=== PATIENT | female | born 1995 | race Caucasian/White ===

== ENCOUNTER 2020-06-03 14:06 | Emergency (ER) | payer MEDICAID ==
[~2020-06-03] VITALS: Ht 152.4 cm; Wt 72.1 kg
[2020-06-03 14:13] VITALS: BP 150/90
--- NOTE | 2020-06-03 14:30 | NUR ---
requesting a return to work notice. Pt states she was tested for COVID one week ago and she tested negative but her job will not allow her to return until she is cleared by a doctor. Pt denies any symptoms at this time. Pt only requesting a return to work notice. VSS.
[2020-06-03 14:49] VITALS: BP 150/90
--- NOTE | 2020-06-03 14:49 | NUR ---
Patient discharged with v/s stable. Written and verbal after care instructions given and explained. Patient verbalized understanding. Work excuse provided to return to work. Ambulatory with steady gait. All questions addressed prior to discharge. Advised to follow up with PMD.
== END 2020-06-03 14:49 | disposition home or self-care (01) ==
LOC: MED 14:06
DX: J45.909 Unspecified asthma, uncomplicated (principal); Z02.89 Encounter for other administrative examinations
CPT/HCPCS: 99281; 99283

== ENCOUNTER 2022-01-10 18:38 | Emergency (ER) | payer MEDICAID, OTHER ==
[~2022-01-10] VITALS: Ht 154.9 cm; Wt 72.6 kg
[2022-01-10 18:43] VITALS: BP 157/69
--- NOTE | 2022-01-10 18:58 | NUR ---
Patient ambulated from [facility] to bed 04.
--- NOTE | 2022-01-10 19:03 | NUR ---
Dr. Barrera is evaluating pt at bedside
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
[2022-01-10] MEDS ORDERED: LORazepam 0.5 MG TAB PO ONE (19:05)
--- NOTE | 2022-01-10 19:14 | NUR ---
RAD at bedside
--- NOTE | 2022-01-10 19:21 | NUR ---
Report and transfer of care endorsed to KYMBERLY Conde
[2022-01-10 20:42] VITALS: BP 143/65
--- NOTE | 2022-01-10 20:42 | NUR ---
Patient discharged with v/s stable. Written and verbal after care instructions given and explained. Patient verbalized understanding. Ambulatory with steady gait. All questions addressed prior to discharge. Advised to follow up with PMD. VSS, A/OX4, AMBULATORY, UNLABORED BREATHING, AND CALM DEMEANOR.
== END 2022-01-10 20:42 | disposition home or self-care (01) ==
LOC: MED 18:38
DX: F41.9 Anxiety disorder, unspecified (principal); J45.909 Unspecified asthma, uncomplicated
CPT/HCPCS: 71045; 93005; 99284; Q0092

== ENCOUNTER 2022-10-07 17:51 | Emergency (ER) | payer OTHER ==
[~2022-10-07] VITALS: Ht 157.5 cm; Wt 68.9 kg
[2022-10-07 18:00] VITALS: BP 130/87
--- NOTE | 2022-10-07 18:35 | NUR ---
PT AMBULATED TO ROOM 11
--- NOTE | 2022-10-07 18:44 | NUR ---
PT /O SUBSTERNAL CHEST PAIN RADIATING TO BACK X2 DAYS. PT STATE HAD A SIMILAR EPISODE AND DX WITH AXIETY ATTACK, PT STATES SIMILAR. NSR ON MONITOR. PENDING ER MD MUKHERJEE
[2022-10-07] MEDS ORDERED: ATA25 PO (19:00)
[2022-10-07] MEDS ORDERED: IBUP-2213 PO (19:00)
[2022-10-07 19:06] VITALS: BP 127/98
--- NOTE | 2022-10-07 19:06 | NUR ---
Patient discharged with v/s stable. Written and verbal after care instructions FOR NO SPECIFIC CHEST PAIN AND GENREALIZED ANXIETY DISORDER given and explained. Patient alert, oriented and verbalized understanding of instructions. Ambulatory with steady gait. All questions addressed prior to discharge. ID band removed. Patient advised to follow up with PMD. Rx of ATARAX HCL AND IBUPROFEN given. Opportunity to ask questions provided and answered.
== END 2022-10-07 19:06 | disposition home or self-care (01) ==
LOC: MED 17:51
DX: R07.9 Chest pain, unspecified (principal); F41.9 Anxiety disorder, unspecified; J45.909 Unspecified asthma, uncomplicated; Z72.89 Other problems related to lifestyle
CPT/HCPCS: 99283

== ENCOUNTER 2022-11-12 11:06 | Emergency (ER) | payer OTHER ==
[~2022-11-12] VITALS: Ht 157.5 cm; Wt 65.8 kg
[~2022-11-12 11:06] MED LIST: ATA25 PO; IBUP-2213 PO
[2022-11-12 11:12] VITALS: BP 121/65
[2022-11-12] MEDS ORDERED: LIDOCAINE 1% 500 MG/ 50 ML VIAL INJ ONE (12:05)
[2022-11-12] MEDS ORDERED: IBUPROFEN 600 MG TAB PO ONE (12:05)
[2022-11-12] MEDS ORDERED: LIDOCAINE MPF 1% 5 ML ONE ×2 (12:21→12:23)
[2022-11-12] MEDS ORDERED: LIDOCAINE MPF 1% 10 MG/ML VIAL INJ ONE (12:25)
[2022-11-12] MEDS ORDERED: HYDROcodone/APAP 5/325 MG 1 TAB TAB PO ONE (13:10)
[2022-11-12] MEDS ORDERED: IBUP-2213 PO (13:12)
[2022-11-12] MEDS ORDERED: SULF-59 PO (13:12)
[2022-11-12] MEDS ORDERED: CEPH-588 PO (13:12)
--- NOTE | 2022-11-12 13:31 | NUR ---
Non adherant dressing and bandage placed over abscess on sacral region. Packing in place, bleeding controlled.
--- NOTE | 2022-11-12 13:37 | NUR ---
Patient discharged with v/s stable. Written and verbal after care instructions given and explained. Patient alert, oriented and verbalized understanding of instructions. Ambulatory with steady gait. All questions addressed prior to discharge. ID band removed. Patient advised to follow up with PMD. Rx of BACTRIM, KEFLEX AND IBUPROFEN given. Patient educated on indication of medication including possible reaction and side effects. Opportunity to ask questions provided and answered.
== END 2022-11-12 13:37 | disposition home or self-care (01) ==
LOC: MED 11:06
DX: L05.01 Pilonidal cyst with abscess (principal); J45.909 Unspecified asthma, uncomplicated
CPT/HCPCS: 10060; 99283; J2001

== ENCOUNTER 2022-11-14 08:40 | Emergency (ER) | payer OTHER ==
[~2022-11-14] VITALS: Ht 154.9 cm; Wt 65.3 kg
[~2022-11-14 08:40] MED LIST changes: +CEPH-588 PO; +SULF-59 PO
[2022-11-14 08:48] VITALS: BP 98/73
== END 2022-11-14 09:40 | disposition home or self-care (01) ==
LOC: MED 08:40
DX: L05.91 Pilonidal cyst without abscess (principal); Z48.00 Encounter for change or removal of nonsurgical wound dressing
CPT/HCPCS: 10080; 99284

== ENCOUNTER 2023-02-26 11:21 | Emergency (ER) | payer OTHER ==
[~2023-02-26] VITALS: Ht 157.5 cm; Wt 71.2 kg
[2023-02-26 11:55] VITALS: BP 137/86
[2023-02-26] MEDS ORDERED: IBUP-2213 PO (12:15)
[2023-02-26] MEDS ORDERED: METH-1681 PO (12:15)
--- NOTE | 2023-02-26 13:38 | NUR ---
Patient discharged with v/s stable. Written and verbal after care instructions given and explained. Patient alert, oriented and verbalized understanding of instructions. Ambulatory with steady gait. All questions addressed prior to discharge. ID band removed. Patient advised to follow up with PMD. Rx of ROBAXIN given. Patient educated on indication of medication including possible reaction and side effects. Opportunity to ask questions provided and answered.
== END 2023-02-26 13:00 | disposition home or self-care (01) ==
LOC: MED 11:21
DX: M79.18 Myalgia, other site (principal); M54.2 Cervicalgia; J45.909 Unspecified asthma, uncomplicated; Z79.899 Other long term (current) drug therapy; Z79.1 Long term (current) use of non-steroidal anti-inflammatories (NSAID); Z79.2 Long term (current) use of antibiotics; V89.2XXA Person injured in unspecified motor-vehicle accident, traffic, initial encounter; Y93.89 Activity, other specified; Y92.410 Unspecified street and highway as the place of occurrence of the external cause; Y99.8 Other external cause status
CPT/HCPCS: 99283

== ENCOUNTER 2023-05-21 11:29 | Emergency (ER) | payer OTHER ==
[~2023-05-21] VITALS: Ht 167.6 cm; Wt 70.3 kg
[~2023-05-21 11:29] MED LIST changes: +METH-1681 PO
[2023-05-21 13:12] VITALS: BP 127/84
--- NOTE | 2023-05-21 13:30 | NUR ---
PATIENT PRESENTS TO ED WITH BREAST PAIN. PT STATES THE PAIN HAS BEEN FOR 24 HOURS . DENIES N/V/D; SKIN IS PINK/WARM/DRY; PT HAS SMALL PIMPLE LOCATED UNDER LEFT ARM. AAOX4 WITH EVEN AND STEADY GAIT; LUNGS CLEAR BL; HR EVEN AND REGULAR; PT DENIES ANY FEVER, CP, SOB, OR COUGH AT THIS TIME; PATIENT STATES PAIN OF 8/10 AT THIS TIME; VSS; PATIENT POSITIONED FOR COMFORT; HOB ELEVATED; BEDRAILS UP X2; BED DOWN. ER MD MADE AWARE OF PT STATUS. PT HAS GIVEN URINE SAMPLE. NEGATIVE. PROVIDER AWARE OF RESULTS.
[2023-05-21] MEDS ORDERED: IBUP-1842 PO (13:49)
[2023-05-21 13:53] LABS: APPEARANCE,URINE CLEAR (CLEAR); BILIRUBIN,URINE NEGATIVE (NEGATIVE); BLOOD, URINE 1+ (NEGATIVE); COLOR,URINE YELLOW (YELLOW); LEUKOCYTE ESTERASE ,URINE TRACE (NEGATIVE); NITRITE, URINE NEGATIVE (NEGATIVE); UGLUCOSE NEGATIVE (NEGATIVE)
--- NOTE | 2023-05-21 13:56 | NUR ---
Patient discharged with v/s stable. Written and verbal after care instructions given and explained. Patient verbalized understanding. Ambulatory with steady gait. All questions addressed prior to discharge. Advised to follow up with PMD.
[2023-05-21 13:59] VITALS: BP 127/84
--- NOTE | 2023-05-21 14:02 | NUR ---
The patient's care was reviewed and supervised by [place] [facility], RN.
== END 2023-05-21 14:02 | disposition home or self-care (01) ==
LOC: MED 11:29
DX: N60.11 Diffuse cystic mastopathy of right breast (principal); N60.12 Diffuse cystic mastopathy of left breast; J45.909 Unspecified asthma, uncomplicated; Z79.899 Other long term (current) drug therapy
CPT/HCPCS: 81001; 81025; 87086; 99283

== ENCOUNTER 2023-10-27 01:12 | Emergency (ER) | payer OTHER ==
[~2023-10-27] VITALS: Ht 154.9 cm; Wt 65.8 kg
[~2023-10-27 01:12] MED LIST changes: +IBUP-1842 PO
[2023-10-27 01:15] VITALS: BP 137/79; PULSE 80; RESP 17; TEMP 97.7; O2SAT 100
[2023-10-27 02:03] LABS: BILIRUBIN,URINE NEGATIVE (NEGATIVE); BLOOD, URINE 3+ (NEGATIVE); LEUKOCYTE ESTERASE ,URINE NEGATIVE (NEGATIVE); NITRITE, URINE NEGATIVE (NEGATIVE); PROTEIN,URINE 2+ (NEGATIVE); UGLUCOSE NEGATIVE (NEGATIVE); UROBILINOGEN,URINE 0.2 EU/dL (0.2 - 1)
[2023-10-27 02:04] LABS: APPEARANCE,URINE BLOODY (CLEAR); COLOR,URINE BLOODY (YELLOW)
[2023-10-27 02:05] LABS: BACTERIA,URINE OCCASSIONAL /HPF (None Seen); RBC,URINE TOO NUMEROUS TO COUN /HPF (0-5); SQUAMOUS EPITHELIAL CELL,UR 0-3 (FEW) /LPF (0-3 (FEW)); WBC,URINE NONE SEEN /HPF (0-5)
[2023-10-27 02:54] LABS: BASOPHILS % (AUTO) 0.4 % (0.0-2.0); EOSINOPHILS # (AUTO) 0.2 K/uL (0-0.4); EOSINOPHILS % (AUTO) 2.3 % (0.0-4.0); HEMATOCRIT 38.7 % (36-48); HEMOGLOBIN 12.7 g/dL (12.0-16.0); LYMPHOCYTES # (AUTO) 2.3 K/uL (2.5-16.5); MEAN CORPUSCULAR HEMOGLOBIN 28 pg (27-31); MEAN CORPUSCULAR HGB CONC 33 g/dL (33-37); MEAN CORPUSCULAR VOLUME 84.7 fL (80-94); MONOCYTES # (AUTO) 0.6 K/uL (0.8-1.0); MONOCYTES % (AUTO) 8.1 % (1.7-9.3); NEUTROPHILS # (AUTO) 3.9 K/uL (1.8-7.7); NEUTROPHILS % (AUTO) 56.2 % (42.2-75.2); PLATELET COUNT (AUTO) 267 K/uL (140-450); RED BLOOD CELL COUNT(AUTO) 4.57 MIL/uL (4.20-5.40); RED CELL DISTRIBUTION WIDTH 11.8 % (11.6-13.7); WHITE BLOOD COUNT (AUTO) 6.9 K/uL (4.8-10.8)
[2023-10-27 03:06] LABS: ANION GAP 10.7 (8-16); CALCIUM 8.7 mg/dL (8.5-10.1); CARBON DIOXIDE 30.3 mmol/L (21-32); CREATININE 0.8 mg/dL (0.6-1.3)
[2023-10-27 04:30] VITALS: O2SAT 100
[2023-10-27] MEDS ORDERED: MEDR10TA PO (04:41)
== END 2023-10-27 04:45 | disposition home or self-care (01) ==
LOC: MED 01:12
DX: N93.8 Other specified abnormal uterine and vaginal bleeding (principal); J45.909 Unspecified asthma, uncomplicated; Z79.899 Other long term (current) drug therapy; Z79.1 Long term (current) use of non-steroidal anti-inflammatories (NSAID); Z79.2 Long term (current) use of antibiotics
CPT/HCPCS: 36415; 80048; 81001; 81025; 85025; 99283